=== PATIENT | female | born 1975 | race Caucasian/White ===

== ENCOUNTER 2025-05-26 21:07 | Emergency (ER) | payer OTHER, SELFPAY ==
[2025-05-26 21:12] VITALS: BP 167/94
[2025-05-26 22:30] VITALS: BMI 29.6
[2025-05-26 22:56] LABS: Hematocrit 32.0 % (37.0-47.0); Hemoglobin 11.2 g/dL (12.0-16.0); Mean Corp Hgb Conc. 35.0 g/dL (33.0-37.0); Mean Corpuscular Volume 94.4 fL (81.0-99.0); Nucleated Red Blood Cells % 0 %; Platelet Count 142 10^3/uL (130-400); Red Cell Dist. Width 12.2 % (11.5-14.5)
--- NOTE | 2025-05-26 23:01 | ED.GENMED ---
History of Present Illness
General
Chief Complaint: Abnormal Lab Value
Source: patient
Time Seen by Provider: 05/26/25 22:10
History of Present Illness
History of Present Illness:
Note:
CHIEF COMPLAINT(S)
Intermittent squeezing sensation in the left arm with associated numbness.
HISTORY OF PRESENT ILLNESS
The patient is a 49-year-old female who presented with an intermittent squeezing sensation in the left forearm, experienced between 8 and 9 PM. She described numbness throughout the left arm and characterized it as strange and concerning. The
symptoms are not permanent and occasionally extend towards the shoulder. The patient reported a lack of weakness and denied any burning or significant chest pain, but mentioned feeling slightly apprehensive, which may have contributed to minor chest
discomfort. She did not experience shortness of breath or fever. The patient provided a history of bloodwork indicating leukopenia with a white blood cell count of 2.2 and reduced platelet count, noted on laboratory tests performed twice on May
and May 23. Slight reductions in hemoglobin were also noted, indicative of mild pancytopenia. The onset of these hematological changes dates back to at least March 02. The patient is scheduled to see a commercial artist lettering next Wednesday.
Current concern over the arm sensation is being evaluated with upcoming labs and an electrocardiogram to assess heart function.
EXTERNAL RECORDS REVIEWED
The patient referenced having previous bloodwork showing leukopenia, thrombocytopenia, and mild pancytopenia from tests conducted on May 21 and , as well as a history of decreasing counts since March 02.
CHRONIC MEDICAL CONDITIONS SIGNIFICANTLY AFFECTING CARE
The patient has a history of hypothyroidism for which she is receiving treatment.
PHYSICAL EXAM
General: Alert and in no acute distress.
Skin: Warm, dry.
Head: Normocephalic, atraumatic.
Neck: Supple, trachea midline.
Eye, Ears, Nose, Mouth, and Throat: Oral mucosa moist.
Cardiovascular: Regular heart rate and rhythm.
Respiratory: Lungs clear to auscultation with no wheezing or crackles. Respirations are non-labored.
Gastrointestinal: Abdomen nondistended.
Back: Normal range of motion, normal alignment.
Musculoskeletal: Normal range of motion, normal strength. No edema noted in legs.
Neurological: Alert and oriented to person, place, time, and situation. No focal neurological deficit observed.
Psychiatric: Cooperative, appropriate mood and affect.
PROBLEM LIST
- Acute: Intermittent squeezing sensation and numbness in the left arm.
- Chronic: Hypothyroidism.
PLAN
The plan includes obtaining an electrocardiogram to evaluate cardiac function, given the patients symptoms in the left arm. Bloodwork is also planned to assess the current status of the previously noted hematological abnormalities, including the
leukopenia and thrombocytopenia. The patient is to follow up with her commercial artist lettering as scheduled next Wednesday.
DIFFERENTIAL DIAGNOSIS
The Differential Diagnosis includes, in no particular order and is not limited to:
1. Peripheral neuropathy
2. Cervical radiculopathy
3. Transient ischemic attack
4. Myocardial ischemia
5. Thoracic outlet syndrome
6. Carpal tunnel syndrome
7. Anxiety-related somatic symptom
8. Brachial plexus injury
9. Multiple sclerosis
10. Hypothyroidism-related neuropathy
Disposition:
SUMMARY OF ENCOUNTER
The patient, a 49-year-old female, was seen primarily for concerns regarding recent lab work indicating progressive leukopenia, anemia, and previously declining platelet counts. She reported intermittent squeezing sensations in the left arm with
associated numbness. A comprehensive evaluation was performed, including a complete blood count (CBC), comprehensive metabolic panel (CMP), and electrocardiogram (EKG). The CBC demonstrated mild leukopenia and mild anemia. However, platelet counts
had normalized. The CMP and troponin levels were normal. The EKG was nonspecific. The patient denied any chest pain and exhibited no significant cardiac risk factors. Vital signs remained stable upon reassessment, with a resolution of her symptoms.
The decision was made to manage her as an outpatient with appropriate follow-up.
DISPOSITION
Discharge.
ASSESSMENT
The patient presented with an intermittent squeezing sensation and numbness in the left arm, alongside recent laboratory findings of leukopenia and anemia. Given the absence of immediate serious findings, outpatient management was deemed
appropriate, with a scheduled follow-up with hematology.
PLAN
The plan involves outpatient discharge with a follow-up appointment with the commercial artist lettering as scheduled. No prescription medications or immediate interventions are necessary at this time given the symptom resolution and laboratory findings.
INDEPENDENT REVIEW OF LABS AND INTERPRETATION OF TESTS
My independent review of CBC shows mild leukopenia and mild anemia, with normalization of platelets. My independent review of the CMP indicates normal results. My independent interpretation of troponin levels indicates no elevation. My independent
interpretation of the EKG shows nonspecific findings.
PATIENT EDUCATION AND COUNSELING
The patient was informed about the findings of her lab work and reassured regarding the mild nature of the leukopenia and anemia. She was educated about the importance of following up with the commercial artist lettering and advised to monitor for any new symptoms.
FOLLOW-UP INSTRUCTIONS
The patient is to follow up as scheduled with hematology, ensuring continued monitoring and management of her hematological findings.
MEDICAL DECISION MAKING
-Complexity of Data Reviewed: Chronic conditions affecting care include hypothyroidism. Differential diagnosis considerations include peripheral neuropathy, cervical radiculopathy, transient ischemic attack, myocardial ischemia, thoracic outlet
syndrome, carpal tunnel syndrome, anxiety-related somatic symptom, brachial plexus injury, multiple sclerosis, hypothyroidism-related neuropathy.
-Data:
Category 1
Non-emergency department records reviewed: Prior laboratory records indicating leukopenia, thrombocytopenia, and mild pancytopenia were considered.
Category 2
My independent interpretation of EKG was nonspecific.
-Risk:
Consideration of Admission/Observation: Escalation of care including admission/observation was considered given the complexity and risk of the patients presenting complaint, exam findings, and underlying comorbidities. However, ultimately I feel the
patient is safe for outpatient management with close follow-up. Reasoning: Work-up reassuring, does not reveal any acute life/organ threatening processes, patients symptoms well controlled upon reevaluation, reexamination is reassuring, vitals are
stable, patient agreeable with discharge, reliable for follow-up.
DIAGNOSIS
- Leukopenia, unspecified (D72.819)
- Anemia, unspecified (D64.9)
- Intermittent arm numbness (R20.8)
Past History
Past History
ED Past Medical History: Hypothyroidism
ED Past Surgical History: None
Social History
Tobacco: Non-smoker
Alcohol: None
Drug: None
Phy Exam
Physical Exam
Physical Exam:
.
Course
Orders/Labs/Results
Orders:
Orders
05/26/25 22:36
Complete Blood Count/With Diff Urgent
Comprehensive Metabolic Panel Urgent
05/26/25 23:01
Electrocardiogram (*1) Urgent
Reason for Study: Other
Other Reason for Exam: arm pain
EKG- Treatment ONCE
05/26/25 23:48
Troponin I Urgent
Abnormal Lab Results
05/26/25
22:36
WBC 2.7 L 10^3/uL
(4.8-10.8)
RBC 3.39 L 10^6/uL
(4.20-5.40)
Hgb 11.2 L g/dL
(12.0-16.0)
Hct 32.0 L %
(37.0-47.0)
MCH 33.0 H pg
(27.0-31.0)
Absolute Lymphs (auto) 1.1 L 10^3/uL
(1.2-3.4)
05/26/25 22:36
05/26/25 22:36
Vital Signs
Initial and Last Documented VS:
Initial Vital Signs
Temp Pulse Resp BP Pulse Ox
98.1 F 96 20 167/94 99
05/26/25 21:12 05/26/25 21:12 05/26/25 21:12 05/26/25 21:12 05/26/25 21:12
Last Documented Vital Signs
Temp Pulse Resp BP Pulse Ox
98.1 F 67 18 102/67 99
05/26/25 21:12 05/27/25 01:12 05/27/25 01:12 05/27/25 01:12 05/27/25 01:12
*Pulse Oximetry
SaO2: 99
Oxygen Mode of Delivery: Room air
Patient hypoxic: no
*EKG
Interpreted by ED Provider?: Yes
Rate: normal
Rhythm: sinus
Hume: normal axis
QRS Pattern: normal QRS
Ischemia: non-specific ST changes
*Borematic Machine Operator Interpretation
Rate: normal
Interpretation: normal
Rhythm: sinus
*Critical Care Note
Total Time (30-74mins, 75-104mins- exclusive of procedures): Not Applicable
ED Attending Note
-
Portions of this chart may have been created with voice recognition software.� Occasional wrong word or��sound alike� substitutions may have occurred due to the inherent limitations of voice recognition software.
Discharge Plan
Departure
Patient Disposition: Home (Routine Discharge)
Date of Disposition: 05/27/25
Time of Disposition: 00:56
Patient with high blood pressure during this ER visit?: No
Discharge Problem:
Arm pain, Leukopenia
Prescriptions:
No Action
multivitamin with folic acid [Tab-A-Ishaan] 1 TABLET tablet
1 tab PO DAILY
levothyroxine 150 MCG tablet
150 mcg PO DAILY
ferrous sulfate [FeroSul] 325 MG tablet
325 mg PO BID Qty: 30 0RF
ibuprofen 600 MG tablet
600 mg PO Q4HPRN PRN (Reason: moderate pain/cramps) Qty: 30 0RF
sennosides-docusate sodium 1 TABLET tablet
1 tab PO DAILYPRN PRN (Reason: constipation) Qty: 60 0RF
Referrals:
Priti Flaherty MD [Family Provider, Internal Medicine]
Activity Restrictions/Additional Instructions:
Arm Pain
Leukopenia
Please follow-up with oncology as planned regarding your lab results. Please see your PCP. Return immediately for chest pain, shortness of breath, weakness of any kind, or any other concerns.
Interventions
Interventions:
*Risk Screen - Suicide Last Done: 05/26/25 22:30
*General Assessment Last Done: 05/26/25 21:12
*Neglect/Abuse Screening Last Done: 05/26/25 22:30
*ED COVID-19 Vaccine History Last Done: 05/26/25 22:30
*ED Influenza Vaccine History Last Done: 05/26/25 22:30
[facility] Risk Assessment Tool Last Done: 05/26/25 22:50
*Nursing Disposition Last Done: 05/27/25 01:13
Discharge Date and Time
Discharge Date/Time: 05/27/25 01:15
Print Language: SPANISH
[2025-05-26 23:09] VITALS: BP 114/71
[2025-05-26 23:25] LABS: ALT (SGPT) 14 U/L (0-35); AST (SGOT) 19 U/L (14-36); Albumin 4.4 g/dl (3.5-5.0); Alkaline Phosphatase 60 U/L (38-126); Blood Urea Nitrogen 10 mg/dl (7-17); Calcium 9.3 mg/dl (8.4-10.2); Carbon Dioxide 27 mmol/L (22-30); Chloride 103 mmol/L (98-107); Estimated Creatinine Clearance 71 ml/min; Glucose 96 mg/dl (70-99); Potassium 4.3 mmol/L (3.5-5.1); Sodium 137 mmol/L (135-145); Total Protein 7.4 g/dl (6.3-8.2); eGFR > 60.00
[2025-05-27 00:27] LABS: Troponin I 0.014 ng/ml
[2025-05-27 01:12] VITALS: BP 102/67
== END 2025-05-27 01:15 | disposition home or self-care (01) ==
LOC: EMR 21:07
PROVIDERS: EMERGENCY PHYSICIAN Emergency Medicine; FAMILY PHYSICIAN Internal Medicine
DX: M79.602 Pain in left arm (principal); R20.0 Anesthesia of skin; D72.819 Decreased white blood cell count, unspecified; E03.9 Hypothyroidism, unspecified
CPT/HCPCS: 99284; 80053; 84484; 85025; 93005